=== PATIENT | female | born 1945 | race Caucasian/White ===

== ENCOUNTER → 2018-12-05 | Outpatient (CLI) | payer MEDICARE ==
[~2018-12-05] MED LIST: ALEN70 PO; CYCL0.05OP BOTHEYES; DIVIGEL TOP; ERGO400 PO; ERYT1OIN; FISH1000 PO; FLAX SEED OIL PO; MINIVELLE1 EAC1 TD; MULVITMIND PO; Omeprazole20 M1; RESTASIS MULTI5.5 ML; Vivelle-Dot1 EAC1; ZOLP5 PO
[2018-12-08 15:07] LABS: HPV 16 Negative (Negative); HPV 18 Negative (Negative); HPV OTHER HR TYPES Negative (Negative)
== END | disposition home or self-care (01) ==
LOC: LAB 13:28 → LAB SHORT 13:28
PROVIDERS: Obstetrics & Gynecology Gynecology
DX: Z91.89 Other specified personal risk factors, not elsewhere classified (principal)
CPT/HCPCS: 87624; G0123

== ENCOUNTER → 2023-09-02 | Outpatient (CLI) | payer MEDICARE | END | disposition home or self-care (01) | LOC: LAB SHORT 12:09 → LAB 12:09 | DX: C44.321 Squamous cell carcinoma of skin of nose (principal) | CPT/HCPCS: 88305 ==